=== PATIENT | male | born 1955 | race Caucasian/White ===

== ENCOUNTER 2023-07-19 10:18 | Day surgery (SDC) | payer MEDICARE, BC ==
[~2023-07-19] VITALS: Ht 182.9 cm; Wt 100.2 kg
[2023-07-19 11:49] VITALS: BP 124/78; PULSE 69; TEMP 98.2
[2023-07-19] MEDS ORDERED: ZESTRIL30 MG PO (11:55)
[2023-07-19] MEDS ORDERED: VITAMIN B12 PO (11:55)
[2023-07-19] MEDS ORDERED: ASPIRIN 81M81 MG/TA2 PO (11:55)
[2023-07-19] MEDS ORDERED: CARDIZEM120 MG PO (11:56)
[2023-07-19] MEDS ORDERED: NEURONTIN100 MG/CAP PO (11:56)
[2023-07-19] MEDS ORDERED: ALEVE 220MG220 MG PO (11:57)
[2023-07-19] MEDS ORDERED: NEXIUM 20MG20 MG PO (11:57)
[2023-07-19] MEDS ORDERED: FLOMAX 0.40.4 MG/CAP PO (11:57)
[2023-07-19] MEDS ORDERED: NORCO 325 MG-51 TAB PO (12:35)
[2023-07-19 15:15] VITALS: BP 125/66; PULSE 71; TEMP 97.4
[2023-07-19 15:56] VITALS: BP 115/57; PULSE 63
[2023-07-19 16:00] VITALS: BP 115/57; PULSE 61
[2023-07-19 16:15] VITALS: BP 122/66; PULSE 67
[2023-07-19 16:20] VITALS: BP 119/62; PULSE 64
--- NOTE | 2023-07-19 17:27 | NUR ---
1600 RECEIVED REPORT FROM RHODA FIGUEROA. PT IS ON STRETCHER, BREATHING UNLABORED, CONTINUES TO C/O NAUSEA AFTER RECEIVING A TOTAL OF 8 MG ZOFRAN. PT TREATED W/ PHENERGAN 12.5 MG IV, PER PRN ORDER W/ RELIEF OF NAUSEA SX. 1615 PT GIVE WATER AND CRACKERS FOR PO CHALLENGE. PT TOLERATED WELL. CONTINUES TO C/O 5/10 PAIN. GAVE A DOSE OF PRN NORCO, PER ORDER. PT AMBULATORY TO RESTROOM TO VOID 1655 REVIEWED PHYSICIAN DISCHARGE INSTRUCTIONS AND PT EDUCATIONAL MATERIAL W/ PT AND HIS . QUESTIONS INVITED AND ANSWERED. 1705 PT TO [facility]OB[facility] VIA WHEEL CHAIR FOR A RIDE HOME WITH HIS VIA POV
== END 2023-07-19 17:05 | disposition home or self-care (01) ==
LOC: SDCO 10:18
DX: K43.9 Ventral hernia without obstruction or gangrene (principal)
CPT/HCPCS: C1781; J0690; J1100; J1170; J1885; J2405; J2550; J2704; J3010; J7120